=== PATIENT | male | born 1980 | race African-American/Black ===

== ENCOUNTER 2017-05-31 15:23 | Emergency (ER) | payer MEDICAID ==
[~2017-05-31] VITALS: Ht 172.7 cm; Wt 111.4 kg
[~2017-05-31 15:23] MED LIST: ALBU8.5H8 IH
[2017-05-31] MEDS ORDERED: PredniSONE 20 MG TABLET PO ONE (17:45)
[2017-05-31] MEDS ORDERED: ALBUTEROL SULFATE 5 MG/ML 20 ML NEB SOLN [BULK] NEB ONE (17:45)
[2017-05-31] MEDS ORDERED: IPRATROPIUM BROMIDE 0.5 MG/2.5 ML NEB SOLUTION NEB ONE (17:45)
[2017-05-31] MEDS ORDERED: 0.9% SODIUM CHLORIDE 15 ML NEB SOLUTION NEB ONE (17:48)
[2017-05-31 18:50] VITALS: BP 139/79
== END 2017-05-31 19:32 | disposition home or self-care (01) ==
LOC: EMS 15:26
DX: J45.901 Unspecified asthma with (acute) exacerbation (principal); R03.0 Elevated blood-pressure reading, without diagnosis of hypertension; F17.200 Nicotine dependence, unspecified, uncomplicated
CPT/HCPCS: 94644; 99285; 99406; J7512; J7611

== ENCOUNTER 2018-11-29 11:18 | Emergency (ER) | payer MEDICAID ==
[~2018-11-29] VITALS: Ht 172.7 cm; Wt 104.5 kg
[2018-11-29 11:30] VITALS: BP 143/91
[2018-11-29] MEDS ORDERED: PROPARACAINE HCL 0.5% 15 ML OPHTHALMIC SOLUTION OS ONE (11:30)
[2018-11-29] MEDS ORDERED: FLUORESCEIN SODIUM 1 MG STRIP ONE (11:37)
== END 2018-11-29 12:29 | disposition home or self-care (01) ==
LOC: EMS 11:20
DX: H57.12 Ocular pain, left eye (principal); R03.0 Elevated blood-pressure reading, without diagnosis of hypertension; J45.909 Unspecified asthma, uncomplicated; Z79.899 Other long term (current) drug therapy

== ENCOUNTER 2019-05-08 09:02 | Emergency (ER) | payer MEDICAID ==
[~2019-05-08] VITALS: Ht 170.2 cm; Wt 86.4 kg
[2019-05-08] MEDS ORDERED: LIDOCAINE 5% TRANSDERMAL PATCH TD ONE (10:00)
[2019-05-08] MEDS ORDERED: KETOROLAC TROMETHAMINE 30 MG/ML VIAL IM ONE (10:00)
[2019-05-08] MEDS ORDERED: METHOCARBAMOL 500 MG TABLET PO ONE (10:00)
[2019-05-08 10:19] VITALS: BP 156/86
== END 2019-05-08 11:19 | disposition home or self-care (01) ==
LOC: EMS 09:03
DX: M54.31 Sciatica, right side (principal); J45.909 Unspecified asthma, uncomplicated; Z79.899 Other long term (current) drug therapy
CPT/HCPCS: 96372; 99283; J1885